=== PATIENT | female | born 1935 | race Caucasian/White ===

== ENCOUNTER 2017-10-23 09:36 | Emergency (ER) | payer MEDICARE, BC ==
--- NOTE | 2017-10-23 10:27 | EDM.PDOC ---
ED HPI GENERAL MEDICAL PROBLEM - General Chief Complaint: General Stated Complaint: POSSIBLE KIDNEY INFECTION, CHILLS, NAUSEA, PAIN Time Seen by Provider: 10/23/17 10:05 Source of Information: Reports: Patient, Family History Limitations: Reports: No Limitations - History of Present Illness INITIAL COMMENTS - FREE TEXT/NARRATIVE: 82-year-old female brought in via her because of chills and fever overnight, back pain, nausea, symptoms very similar to what she had with a recent hospitalization of pyelonephritis 3 weeks ago. She was on antibiotics until 10 days ago. Was doing well until last night when she started to become ill. She does not have dysuria or increased urinary frequency. She has no shortness of breath or cough. She does have some left-sided abdominal discomfort which was not present on her last illness. She had several bouts of emesis this morning. Severity: Moderate Associated Symptoms: Reports: Fever/Chills, Loss of Appetite, Malaise. Denies: Headaches, Shortness of Breath Left Flank Pain Score (Numeric/FACES): 3 - Related Data Allergies Allergy/AdvReac Type Severity Reaction Status Date / Time Penicillins Allergy Hives Verified 10/23/17 10:01 Sulfa (Sulfonamide Allergy Hives Verified 10/23/17 10:01 Antibiotics) Home Meds: Home Meds Bumetanide 1 mg PO DAILY PRN 10/23/17 [History] Hydroxychloroquine [Plaquenil] 300 mg PO DAILY 10/23/17 [History] Levothyroxine Sodium [Levoxyl] 100 mcg PO DAILY 10/23/17 [History] Losartan Potassium 50 mg PO DAILY 10/23/17 [History] Metoprolol Tartrate 25 mg PO BID 10/23/17 [History] Oxybutynin 5 mg PO BEDTIME 10/23/17 [History] Rosuvastatin [Crestor] 40 mg PO BEDTIME 10/23/17 [History] Spironolactone [Aldactone] 25 mg PO DAILY 10/23/17 [History] amLODIPine Besylate [Amlodipine Besylate] 5 mg PO DAILY 10/23/17 [History] Past Medical History Cardiovascular History: Reports: High Cholesterol, Hypertension [employer] History: Reports: Endocrine/Metabolic History: Reports: Diabetes, Type II, Hypothyroidism - Infectious Disease History Infectious Disease History: Reports: C-Difficile, Measles, Mumps - Past Surgical History GI Surgical History: Reports: Cholecystectomy Female Surgical History: Reports: Hysterectomy Endocrine Surgical History: Reports: Thyroidectomy Social & Family History - Tobacco Use Smoking Status *Q: Never Smoker - Caffeine Use Caffeine Use: Reports: Coffee - Recreational Drug Use Recreational Drug Use: No ED ROS GENERAL - Review of Systems Review Of Systems: See Below Constitutional: Reports: Fever, Chills, Malaise Respiratory: Denies: Shortness of Breath, Cough Cardiovascular: Denies: Chest Pain GI/Abdominal: Reports: Abdominal Pain (Left-sided), Nausea, Vomiting : Reports: Flank Pain (Left-sided). Denies: Dysuria Skin: Reports: Diaphoresis Neurological: Reports: No Symptoms ED EXAM, GENERAL - Physical Exam Exam: See Below Exam Limited By: No Limitations General Appearance: Alert, No Apparent Distress (Patient appears uncomfortable but not distressed) Eye Exam: Bilateral Eye: Normal Inspection Respiratory/Chest: No Respiratory Distress, Lungs Clear Cardiovascular: Regular Rate, Rhythm, Tachycardia GI/Abdominal: Soft, Tender (Reacts with tenderness to palpation along the left abdomen, no rebound tenderness) Neurological: Alert, Oriented Psychiatric: Normal Affect, Normal Mood Skin Exam: Warm Course - Vital Signs Last Recorded V/S: Last Vital Signs Temp 99.8 F 10/23/17 09:56 Pulse 105 H 10/23/17 09:56 Resp 18 10/23/17 09:56 BP 162/70 H 10/23/17 09:56 Pulse Ox 93 L 10/23/17 09:56 - Orders/Labs/Meds Orders: Active Orders 24 hr Category Date Time Status UA W/MICROSCOPIC [URIN] Urgent Lab 10/23/17 10:44 Ordered Labs: Laboratory Tests 10/23/17 10/23/17 10/23/17 Range/Units 10:32 10:32 10:44 WBC 5.2 (4.5-11.0) K/uL RBC 3.78 (3.30-5.50) M/uL Hgb 11.9 L (12.0-15.0) g/dL Hct 35.6 L (36.0-48.0) % MCV 94 (80-98) fL MCH 32 H (27-31) pg MCHC 33 (32-36) % Plt Count 112 L (150-400) K/uL Neut % (Auto) 82 H (36-66) % Lymph % (Auto) 5 L (24-44) % [place] % (Auto) 13 H (2-6) % Eos % (Auto) 0 L (2-4) % Baso % (Auto) 0 (0-1) % Sodium 139 L (140-148) mmol/L Potassium 4.3 (3.6-5.2) mmol/L Chloride 105 (100-108) mmol/L Carbon Dioxide 20 L (21-32) mmol/L Anion Gap 18.3 H (5.0-14.0) mmol/L BUN 39 H (7-18) mg/dL Creatinine 1.3 H (0.6-1.0) mg/dL Est Cr Clr Drug Dosing 26.99 mL/min Estimated GFR (MDRD) 39 L (>60) Glucose 180 H (74-106) mg/dL Calcium 9.6 (8.5-10.1) mg/dL Total Bilirubin 0.8 (0.2-1.0) mg/dL AST 18 (15-37) U/L ALT 23 (12-78) U/L Alkaline Phosphatase 59 (46-116) U/L Total Protein 7.1 (6.4-8.2) g/dL Albumin 3.6 (3.4-5.0) g/dL Globulin 3.5 (2.3-3.5) g/dL Albumin/Globulin Ratio 1.0 L (1.2-2.2) Amylase 23 L (25-115) U/L Lipase 77 (73-393) U/L Urine Color Yellow Urine Appearance Clear Urine pH 5.0 (4.5-8.0) Ur Specific [place] 1.015 (1.008-1.030) Urine Protein Negative (NEGATIVE) mg/dL Urine Glucose (UA) Normal (NEGATIVE) mg/dL Urine Ketones 15 H (NEGATIVE) mg/dL Urine Occult Blood Moderate (NEGATIVE) Urine Nitrite Negative (NEGATIVE) Urine Bilirubin Negative (NEGATIVE) Urine Urobilinogen Normal (NORMAL) mg/dL Ur Leukocyte Esterase Negative (NEGATIVE) Urine RBC 0-5 (0-5) Urine WBC 0-5 (0-5) Ur Epithelial Cells Few Amorphous Sediment Not seen Urine Bacteria Not seen Urine Mucus Not seen - Re-Assessments/Exams Free Text/Narrative Re-Assessment/Exam: 10/23/17 10:28 CBC, CMP, amylase lipase and quick catheter UA were obtained. 10/23/17 11:21 Labs were reassuring, white count was normal, urine was clear and amylase and lipase were normal. Her labs indicate moderate dehydration but she developed no vomiting while in the emergency room. Still some nausea, so she was discharged with 5 doses of Zofran to use while she is maintaining hydration. She can return if worsening. Departure - Departure Time of Disposition: 11:36 Disposition: Home, Self-Care 01 Condition: Good Clinical Impression: Dehydration Nausea with vomiting Qualifiers: Vomiting type: unspecified Vomiting Intractability: non-intractable Qualified Code(s): R11.2 - Nausea with vomiting, unspecified - Discharge Information Instructions: Dehydration, Adult, [id number], Nausea and Vomiting, Adult Referrals: PCP,None [Primary Care Provider] - Forms: ED Department Discharge Care Plan Goals: Use Zofran under your tongue every 6 hours for persistent nausea and drink lots of water. Advance diet as tolerated and return if worsening despite treatment. - My Orders Last 24 Hours: My Active Orders 10/23/17 10:44 UA W/MICROSCOPIC [URIN] Urgent - Assessment/Plan Last 24 Hours: My Active Orders 10/23/17 10:44 UA W/MICROSCOPIC [URIN] Urgent
== END 2017-10-23 11:37 | disposition home or self-care (01) ==
LOC: JP.ED 09:36
DX: E86.0 Dehydration (principal); R11.2 Nausea with vomiting, unspecified; I10 Essential (primary) hypertension; E78.00 Pure hypercholesterolemia, unspecified; E11.9 Type 2 diabetes mellitus without complications; E03.9 Hypothyroidism, unspecified; Z79.899 Other long term (current) drug therapy; Z88.0 Allergy status to penicillin; Z88.2 Allergy status to sulfonamides
CPT/HCPCS: 36415; 80053; 81001; 82150; 83690; 85025; 99284